=== PATIENT | female | born 1990 | race Caucasian/White ===

== ENCOUNTER 2024-01-04 16:40 | Emergency (ER) | payer BC ==
[~2024-01-04] VITALS: Ht 162.6 cm; Wt 98.6 kg
[2024-01-04 18:28] VITALS: BP 144/90; PULSE 117; RESP 16; TEMP 98.8; O2SAT 96
== END 2024-01-04 19:04 | disposition home or self-care (01) ==
LOC: ER 16:40
DX: O26.892 Other specified pregnancy related conditions, second trimester (principal); M54.42 Lumbago with sciatica, left side; Z3A.17 17 weeks gestation of pregnancy